=== PATIENT | female | born 1980 | race Caucasian/White ===

== ENCOUNTER 2018-07-29 01:01 | Emergency (ER) | payer MEDICAID, OTHER ==
[~2018-07-29] VITALS: Ht 160 cm; Wt 65.8 kg
[2018-07-29] MEDS ORDERED: HYDROcodone/APAP 5 MG/325 MG (LORTAB) TAB PO ONE (01:45)
[2018-07-29] MEDS ORDERED: CLINDAMYCIN 150 MG (CLEOCIN) CAP PO ONE (01:45)
[2018-07-29] MEDS ORDERED: LIDOCAINE 2% VISCOUS 15 ML UDC PO ONE (01:45)
[2018-07-29] MEDS ORDERED: ONDANSETRON 4 MG (ZOFRAN) ORAL DISSOLVE TAB SL ONE (02:15)
[2018-07-29] MEDS ORDERED: AMOX500C2 PO (02:21)
[2018-07-29] MEDS ORDERED: ACHD5005 PO (02:21)
--- NOTE | 2018-07-29 02:22 | ED EENT ---
History of Present Illness General Chief Complaint: Dental Problems/Pain Stated Complaint: DENTAL PAIN Nursing Triage Note: AMBULATORY TO ED STATING SHE HAS DENTAL PAIN FROM BROKEN TOOTH ON BOTTOM LEFT SIDE. STATES SHE IS DRIVING FROM [place], [place] TO [place], [place] AND PAIN IS TOO GREAT AND HAD TO STOP. 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 Source: patient Exam Limitations: no limitations History of Present Illness Date Seen by Provider: Jul 29, 2018 Time Seen by Provider: 01:27 Initial Comments This 37-year-old woman presents to the emergency room with complaints of dental pain along the left jaw. She has a fractured and decayed tooth that has become abscessed. She does have a bulging abscess on the gums near the broken tooth. She has been taking ibuprofen without significant benefit. She plans to have the tooth extracted at a clinic in [place]. She is afebrile. Allergies and Home Medications Allergies Coded Allergies: No Known Drug Allergies (Unverified , 07/29/18) Home Medications Amoxicillin 500 Mg Capsule, 1,000 MG PO BID Prescribed by: SHARIF MALIK on 07/29/18220 Hydrocodone Bit/Acetaminophen 1 Tab Tab, 1 TAB PO Q4-6HR PRN for PAIN-MODERATE Prescribed by: SHARIF MALIK on 07/29/18220 Patient Home Medication List Home Medication List Reviewed: Yes Review of Systems Review of Systems Constitutional: no symptoms reported Eyes: No Symptoms Reported Ears: No Symptoms Reported Nose: no symptoms reported Mouth: see HPI Throat: no symptoms reported Respiratory: no symptoms reported Cardiovascular: no symptoms reported Gastrointestinal: no symptoms reported : No Musculoskeletal: no symptoms reported Skin: no symptoms reported Neurological: No Symptoms Reported Past Udsyfuv-Gsdhrx-Auvfcl Hx Patient Social History Alcohol Use: Occasionally Uses Recreational Drug Use: Yes Drug of Choice: MARIJUANA Smoking Status: Current Everyday Smoker Type Used: Cigarettes Recent Foreign Travel: No Contact w/Someone Who Travel: No Recent Infectious Disease Expo: No Recent Hopitalizations: No Seasonal Allergies Seasonal Allergies: No Past Medical History Surgeries: Yes Gallbladder Respiratory: No Cardiac: No Neurological: No Genitourinary: No Gastrointestinal: No Musculoskeletal: No Endocrine: Yes Hypothyroidsim HEENT: No Cancer: No Psychosocial: No Integumentary: No Blood Disorders: No Physical Exam Vital Signs Vital Signs - First Documented 07/29/18 07/29/18 01:22 02:27 Temp 98.7 Pulse 106 Resp 20 B/P (MAP) 135/98 (110) Pulse Ox 98 Height, Weight, BMI Height: 5'3.00" Weight: 145lbs. oz. 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 A scalpel was then used to incise the abscess. Purulent material was expressed and debris did with a Richards suction catheter. Patient tolerated the procedure well. Progress/Results/Core Measures Results/Orders My Orders Orders - SHARIF ZAMORA MD Hydrocodone/Apap 5/325 Tablet (Lortab 5 (07/29/18 01:45) Clindamycin Capsule (Cleocin Capsule) (07/29/18 01:45) Lidocaine 2% Viscous 15 Ml (Xylocaine Vi (07/29/18 01:45) Ondansetron Oral Dissolve Tab (Zofran (07/29/18 02:15) Medications Given in ED Current Medications Medications Dose Ordered Sig/Rocio Route Start Time Stop Time Status Last Admin Dose Admin Acetaminophen/ Hydrocodone Bitart 1 tab ONCE ONCE PO 07/29/18 01:45 07/29/18 01:46 DC 07/29/18 01:40 1 TAB Clindamycin HCl 450 mg ONCE ONCE PO 07/29/18 01:45 07/29/18 01:46 DC 07/29/18 01:40 450 MG Lidocaine HCl 15 ml ONCE ONCE PO 07/29/18 01:45 07/29/18 01:46 DC 07/29/18 01:40 15 ML Ondansetron HCl 8 mg ONCE ONCE SL 07/29/18 02:15 07/29/18 02:16 DC 07/29/18 02:11 8 MG Vital Signs/I&O 07/29/18 07/29/18 01:22 02:27 Temp 98.7 98.7 Pulse 106 105 Resp 20 B/P (MAP) 135/98 (110) 130/97 (108) Pulse Ox 98 Blood Pressure Mean: 110 Progress Progress Note : Progress Note Patient was treated with clindamycin and hydrocodone. Anesthetic gauze pads were used to provide topical anesthesia before incision and drainage. Patient developed nausea from her oral medications. Sublingual Zofran was administered. Abscess was then incised and drained. Departure Impression Primary Impression: Dental abscess Additional Impressions: Dental decay Encounter for incision and drainage procedure Disposition: HOME, SELF-CARE Condition: Improved Departure-Patient Inst. Decision time for Depature: 02:18 Referrals: NO,LOCAL PHYSICIAN (PCP/Family) Primary Care Physician Patient Instructions: Tooth Abscess (DC) Add. Discharge Instructions: Use ibuprofen up to 600 mg every 6 hours as needed for primary pain control. Add hydrocodone as prescribed for pain not controlled by ibuprofen. See a dentist as soon as possible to extract the problem tooth. Piercy your teeth gently twice daily. Rinse with antiseptic mouth wash after brushing as tolerated. You may use the anesthetic gauze pads provided in the emergency room as needed. Use with caution as they will numb the mouth, tongue, and throat. Eat and drink very carefully after use. Do NOT fall sleep with gauze pads in your mouth. Complete your antibiotics as prescribed. Return to care if not improving or if symptoms worsen. All discharge instructions reviewed with patient and/or family. Voiced understanding. Scripts Hydrocodone Bit/Acetaminophen (Hydrocodone/Acetaminophen 5/325mg Tablet) 1 Tab Tab 1 TAB PO Q4-6HR PRN for PAIN-MODERATE MDD 10, #10 TAB Prov: SHARIF ZAMORA MD 07/29/18 Amoxicillin (Amoxicillin) 500 Mg Capsule 1000 MG PO BID, #40 CAP Prov: SHARIF ZAMORA MD 07/29/18 SHARIF ZAMORA MD Jul 29, 2018 02:22
[2018-07-29 02:27] VITALS: BP 130/97
== END 2018-07-29 02:28 | disposition home or self-care (01) ==
LOC: ER 01:04
DX: K04.7 Periapical abscess without sinus (principal); K02.9 Dental caries, unspecified; E03.9 Hypothyroidism, unspecified; F12.10 Cannabis abuse, uncomplicated; F17.210 Nicotine dependence, cigarettes, uncomplicated; Z98.890 Other specified postprocedural states
CPT/HCPCS: 99283

== ENCOUNTER 2018-07-29 06:04 | Emergency (ER) | payer MEDICAID, OTHER ==
[~2018-07-29] VITALS: Ht 160 cm; Wt 65.8 kg
[~2018-07-29 06:04] MED LIST: ACHD5005 PO; AMOX500C2 PO
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
--- NOTE | 2018-07-29 07:04 | ED Psychosocial ---
General Chief Complaint: Psych/Social Disorder Stated Complaint: SUICIDAL Source: patient Exam Limitations: no limitations History of Present Illness Date Seen by Provider: Jul 29, 2018 Time Seen by Provider: 06:25 Initial Comments Here with reports of feeling like she wants to end it all. Denies specific suicidal plan but states that things in life got to the point that she doesn't feel like she can cope anymore. She is from the [place] area and drove down here to go stay with her aunt. She has not let her know that she was coming at. She did stop at our emergency department due to tooth pain and was found to have an abscess at the left lower molar which was I&D'd and was given prescription for antibiotics and pain medicine. After that procedure, she waited in the waiting room for approximately 3 hours and then checked back in with the significant depression and thoughts of that she would be better off . Denies HI. Has had 2 previous admissions at [address] [place] [address] for similar issues which she states this is worse than its ever been. Does report that she has lack of family support overall. Reports that she thinks somebody may be trying to harm her although she doesn't know who and does admit that she has paranoid ideas. She did drive here. She does have family in [facility]. She reports that she would voluntarily accepted admission to an inpatient facility for help. Has history of bipolar disorder and is currently being treated for hypothyroidism as well. 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 Timing/Duration: week, getting worse Severity: moderate Associated Symptoms: anxiety, ingestion, injury, suicidal ideation Allergies and Home Medications Allergies Coded Allergies: No Known Drug Allergies (Unverified , 07/29/18) Home Medications Amoxicillin 500 Mg Capsule, 1,000 MG PO BID Prescribed by: SHARIF MALIK on 07/29/18220 Hydrocodone Bit/Acetaminophen 1 Tab Tab, 1 TAB PO Q4-6HR PRN for PAIN-MODERATE Prescribed by: SHARIF MALIK on 07/29/18220 Patient Home Medication List Home Medication List Reviewed: Yes Review of Systems Constitutional: see HPI; No chills, No fever EENTM: see HPI, mouth pain; No throat pain Respiratory: no symptoms reported Cardiovascular: no symptoms reported Gastrointestinal: No abdominal pain, No nausea, No vomiting Genitourinary: no symptoms reported Musculoskeletal: no symptoms reported Skin: no symptoms reported Psychiatric/Neurological: Anxiety, Depressed, Emotional Problems All Other Systems Reviewed Negative Unless Noted: Yes Past Hhrdrjj-Lplxtb-Uxqacz Hx Past Med/Social Hx: Reviewed Nursing Past Med/Soc Hx Patient Social History Alcohol Use: Regular Use Recreational Drug Use: Yes Drug of Choice: MARIJUANA Type Used: Cigarettes Recent Foreign Travel: No Contact w/Someone Who Travel: No Recent Hopitalizations: No Physical Abuse: No Sexual Abuse: No Mistreated: No Fear: No Seasonal Allergies Seasonal Allergies: No Past Medical History Surgeries: Yes Gallbladder Respiratory: No Cardiac: No Neurological: No Genitourinary: No Gastrointestinal: No Musculoskeletal: No Endocrine: Yes Hypothyroidsim HEENT: No Cancer: No Psychosocial: No Integumentary: No Blood Disorders: No Family Medical History Reviewed Nursing Family Hx No Pertinent Family Hx Physical Exam Vital Signs - First Documented 07/29/18 06:15 Temp 96.0 Pulse 88 Resp 17 B/P (MAP) 117/85 (96) Capillary Refill : Height, Weight, BMI Height: 5'3.00" Weight: 145lbs. oz. 65.855881ky; BMI Method:Stated General Appearance: WD/WN, no apparent distress HEENT: PERRL/EOMI, TMs normal, other (fractured tooth left lower molar with surrounding erythema) Neck: full range of motion, supple Respiratory: lungs clear, normal breath sounds Cardiovascular: regular rate, rhythm, no murmur Gastrointestinal: non tender, soft Extremities: non-tender, normal inspection Neurologic/Psychiatric: alert, oriented x 3 Appearance/Memory: appropriate insight, neat Behavior/Eye Contact: cooperative, good eye contact, normal speech Thoughts/Hallucinations: no apparent hallucination, paranoid Skin: normal color, warm/dry Progress/Results/Core Measures Results/Orders Lab Results Laboratory Tests Test 07/29/18 06:41 07/29/18 08:09 Range/Units Urine Color YELLOW Urine Clarity SLIGHTLY CLOUDY Urine pH 5 5-9 Urine Specific [place] 1.030 H 1.016-1.022 Urine Protein 1+ H NEGATIVE Urine Glucose (UA) NEGATIVE NEGATIVE Urine Ketones NEGATIVE NEGATIVE Urine Nitrite NEGATIVE NEGATIVE Urine Bilirubin NEGATIVE NEGATIVE Urine Urobilinogen NORMAL NORMAL MG/DL Urine Leukocyte Esterase 1+ H NEGATIVE Urine RBC (Auto) NEGATIVE NEGATIVE Urine RBC NONE /HPF Urine WBC 5-10 H /HPF Urine Squamous Epithelial Cells 10-25 H /HPF Urine Crystals NONE /LPF Urine Bacteria FEW H /HPF Urine Casts NONE /LPF Urine Mucus MODERATE H /LPF Urine Culture Indicated YES Urine Test NEGATIVE NEGATIVE Urine Opiates Screen POSITIVE H NEGATIVE Urine Oxycodone Screen NEGATIVE NEGATIVE Urine Methadone Screen NEGATIVE NEGATIVE Urine Propoxyphene Screen NEGATIVE NEGATIVE Urine Barbiturates Screen NEGATIVE NEGATIVE Ur Tricyclic Antidepressants Screen NEGATIVE NEGATIVE Urine Phencyclidine Screen NEGATIVE NEGATIVE Urine Amphetamines Screen POSITIVE H NEGATIVE Urine Methamphetamines Screen POSITIVE H NEGATIVE Urine Benzodiazepines Screen POSITIVE H NEGATIVE Urine Cocaine Screen NEGATIVE NEGATIVE Urine Cannabinoids Screen POSITIVE H NEGATIVE White Blood Count 8.5 4.3-11.0 10^3/uL Red Blood Count 4.27 L 4.35-5.85 10^6/uL Hemoglobin 14.6 11.5-16.0 G/DL Hematocrit 42 35-52 % Mean Corpuscular Volume 99 80-99 FL Mean Corpuscular Hemoglobin 34 25-34 PG Mean Corpuscular Hemoglobin Concent 35 32-36 G/DL Red Cell Distribution Width 13.5 10.0-14.5 % Platelet Count 371 130-400 10^3/uL Mean Platelet Volume 9.0 7.4-10.4 FL Neutrophils (%) (Auto) 71 42-75 % Lymphocytes (%) (Auto) 21 12-44 % Monocytes (%) (Auto) 6 0-12 % Eosinophils (%) (Auto) 2 0-10 % Basophils (%) (Auto) 0 0-10 % Neutrophils # (Auto) 6.0 1.8-7.8 X 10^3 Lymphocytes # (Auto) 1.8 1.0-4.0 X 10^3 Monocytes # (Auto) 0.6 0.0-1.0 X 10^3 Eosinophils # (Auto) 0.2 0.0-0.3 10^3/uL Basophils # (Auto) 0.0 0.0-0.1 10^3/uL Sodium Level 140 135-145 MMOL/L Potassium Level 3.3 L 3.6-5.0 MMOL/L Chloride Level 104 98-107 MMOL/L Carbon Dioxide Level 23 21-32 MMOL/L Anion Gap 13 5-14 MMOL/L Blood Urea Nitrogen 12 7-18 MG/DL Creatinine 0.81 0.60-1.30 MG/DL Estimat Glomerular Filtration Rate > 60 BUN/Creatinine Ratio 15 Glucose Level 88 70-105 MG/DL Calcium Level 9.7 8.5-10.1 MG/DL Corrected Calcium 8.5-10.1 MG/DL Total Bilirubin 0.4 0.1-1.0 MG/DL Aspartate Amino Transf (AST/SGOT) 53 H 5-34 U/L Alanine Aminotransferase (ALT/SGPT) 79 H 0-55 U/L Alkaline Phosphatase 94 40-136 U/L Total Protein 7.8 6.4-8.2 GM/DL Albumin 4.7 H 3.2-4.5 GM/DL Free Thyroxine 1.05 0.70-1.48 NG/DL TSH M[place]in Testing 14.38 H 0.35-4.94 UIU/ML Salicylates Level < 5.0 L 5.0-20.0 MG/DL Acetaminophen Level < 10 L 10-30 UG/ML Serum Alcohol < 10 <10 MG/DL My Orders Orders - FAY REARDON MD Ua Culture If Indicated (07/29/18 06:47) Cbc With Automated Diff (07/29/18 06:47) Comprehensive Metabolic Panel (07/29/18 06:47) Alcohol (07/29/18 06:47) Drug Screen Stat (Urine) (07/29/18 06:47) Acetaminophen (07/29/18 06:47) Salicylate (07/29/18 06:47) Ekg Tracing (07/29/18 06:47) Hcg,Qualitative Urine (07/29/18 06:47) Thyroid Analyzer (07/29/18 06:47) Monitor-Rhythm Ecg Trace Only (07/29/18 06:47) Bh Status Checks/Observation Q15M (07/29/18 06:47) General/Regular (07/29/18 Breakfast) Urine Culture (07/29/18 06:41) Free T4 (Free Thyroxine) (07/29/18 08:09) Potassium Chloride (Tablet) (K Dur Table (07/29/18 16:05) Vital Signs/I&O 07/29/18 06:15 Temp 96.0 Pulse 88 Resp 17 B/P (MAP) 117/85 (96) Progress Progress Note : Progress Note Seen and evaluated. Labs, UA, UCG and EKG ordered. Patient declined a nicotine patch. We will complete medical clearance and then initiate looking for mental health bed. Patient did eat a normal breakfast and tolerated that well. 1005: Screen completely does show methamphetamine. I discussed this with the patient and she admits that she does intermittently use methamphetamine over the last year. Patient's thyroid studies elevated for TSH but free T4 is normal. 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 Patient would still like to pursue inpatient admission for her depression concerns and uncontrolled bipolar disorder. We will see if there are beds available and the surrounding communities. Patient is resting comfortably and otherwise no complaints currently. 1345: Patient continues to rest comfortably and reports that she still is seeking inpatient admission. I did discuss the case with the collections technician at [facility] in [facility]. We will fax over documentation to them for evaluation. 1630: I did discuss the case with Dr. Murray and he accepts patient for admission to their hospital. We will arrange for secure transport. Patient agrees to transfer. Initial ECG Impression Date: Jul 29, 2018 Initial ECG Impression Time: 07:03 Initial ECG Rate: 87 Initial ECG Rhythm: Normal Sinus Initial ECG Intervals: Normal Comment Sinus rhythm with normal axis. No evidence of ST elevation [place]. No previous available for comparison. Interpreted by me. Departure Impression Primary Impression: Suicidal ideation Additional Impression: Depression Qualified Codes: F32.2 - Major depressive disorder, single episode, severe without psychotic features Disposition: 02 XFER SHT-TRM HOSP Condition: Stable Transfer Time Spoke to Accepting Phy: 16:30 Transfer Facility: [place], [place], Dr. Murray accepting Method of Transfer: HTS Departure-Patient Inst. Referrals: NO,LOCAL PHYSICIAN (PCP/Family) Primary Care Physician FAY REARDON MD Jul 29, 2018 07:04
--- NOTE | 2018-07-29 07:23 | NUR ---
FOOD TRAY ORDERED
--- NOTE | 2018-07-29 07:33 | NUR ---
FOOD TRAY GIVEN
--- NOTE | 2018-07-29 07:42 | NUR ---
Mindy irizarry in [facility] - 07/29/18 at 0850 by PMCCLURE TOLERATED FLUIDS WELL
--- NOTE | 2018-07-29 08:04 | NUR ---
LAB HERE TO DRAW BLOOD
--- NOTE | 2018-07-29 08:09 | NUR ---
ATE 100% OF BREAKFAST
[2018-07-29 08:13] LABS: BILIRUBIN,URINE NEGATIVE (NEGATIVE); CLARITY,URINE SLIGHTLY CLOUDY; COLOR,URINE YELLOW; GLUCOSE, URINE (UA) NEGATIVE (NEGATIVE); KETONES,URINE NEGATIVE (NEGATIVE); LEUKOCYTE ESTERASE ,URINE 1+ (NEGATIVE); NITRITE,URINE NEGATIVE (NEGATIVE); PH,URINE 5 (5-9); PROTEIN,URINE 1+ (NEGATIVE); UROBILINOGEN,URINE NORMAL (NORMAL)
[2018-07-29 08:22] LABS: BASOPHILS % (AUTO) 0 % (0-10); EOSINOPHILS # (AUTO) 0.2 10^3/uL (0.0-0.3); EOSINOPHILS % (AUTO) 2 % (0-10); HEMATOCRIT 42 % (35-52); HEMOGLOBIN 14.6 G/DL (11.5-16.0); LYMPHOCYTES # (AUTO) 1.8 X 10^3 (1.0-4.0); LYMPHOCYTES % (AUTO) 21 % (12-44); MEAN CORPUSCULAR HEMOGLOBIN 34 PG (25-34); MEAN CORPUSCULAR HGB CONC 35 G/DL (32-36); MEAN CORPUSCULAR VOLUME 99 FL (80-99); MONOCYTES # (AUTO) 0.6 X 10^3 (0.0-1.0); MONOCYTES % (AUTO) 6 % (0-12); NEUTROPHILS % (AUTO) 71 % (42-75); PLATELET COUNT 371 10^3/uL (130-400); RED CELL DISTRIBUTION WIDTH 13.5 % (10.0-14.5); WHITE BLOOD COUNT 8.5 10^3/uL (4.3-11.0)
--- NOTE | 2018-07-29 08:25 | NUR ---
IN ROOM RESTING BELONGING REMAIN LOCKED UP
[2018-07-29 08:29] LABS: BACTERIA,URINE FEW /HPF
[2018-07-29 08:50] LABS: ALANINE AMINOTRANSFERASE 79 U/L (0-55); ALBUMIN 4.7 GM/DL (3.2-4.5); ALKALINE PHOSPHATASE 94 U/L (40-136); BILIRUBIN,TOTAL 0.4 MG/DL (0.1-1.0); BUN/CREATININE RATIO 15; CALCIUM 9.7 MG/DL (8.5-10.1); CARBON DIOXIDE 23 MMOL/L (21-32); CHLORIDE 104 MMOL/L (98-107); CREATININE SERUM 0.81 MG/DL (0.60-1.30); GFR ESTIMATED > 60; GLUCOSE 88 MG/DL (70-105); POTASSIUM 3.3 MMOL/L (3.6-5.0); SALICYLATE < 5.0 MG/DL (5.0-20.0); SODIUM 140 MMOL/L (135-145); TOTAL PROTEIN 7.8 GM/DL (6.4-8.2)
[2018-07-29 08:58] LABS: ACETAMINOPHEN < 10 UG/ML (10-30)
[2018-07-29 09:12] LABS: TSH (THYROID ANALYZER) 14.38 UIU/ML (0.35-4.94)
--- NOTE | 2018-07-29 09:35 | NUR ---
CON'T TO REST IN BED NO NEW C/O
[2018-07-29 09:46] LABS: FREE T4 (FREE THYROXINE) 1.05 NG/DL (0.70-1.48)
[2018-07-29 09:49] LABS: HCG,QUALITATIVE URINE NEGATIVE (NEGATIVE)
[2018-07-29 09:59] LABS: AMPHETAMINE SCREEN, URINE POSITIVE (NEGATIVE); BARBITURATE SCREEN URINE NEGATIVE (NEGATIVE); BENZODIAZEPINES SCREEN URINE POSITIVE (NEGATIVE); CANNABINOID SCREEN, URINE POSITIVE (NEGATIVE); COCAINE SCREEN URINE NEGATIVE (NEGATIVE); METHADONE STAT NEGATIVE (NEGATIVE); METHAMPHETAMINE SCREEN URINE S POSITIVE (NEGATIVE); OPIATE SCREEN URINE POSITIVE (NEGATIVE); OXYCODONE STAT NEGATIVE (NEGATIVE); PROPOXYPHENE STAT NEGATIVE (NEGATIVE); TRICYCLIC ANTIDEPRESSANTS SCRE NEGATIVE (NEGATIVE)
--- NOTE | 2018-07-29 10:19 | NUR ---
CALLED TO CHECK ON BED AVIABLE [address] LEFT MESSAGE [address] NO BEDS [address] LEFT MESSAGE.
--- NOTE | 2018-07-29 11:00 | NUR ---
CON'T TO REST IN BED NO NEW C/O
--- NOTE | 2018-07-29 13:05 | NUR ---
Gave patient lunch tray. Pt ate and was thankful
--- NOTE | 2018-07-29 13:55 | NUR ---
CHART FAXED TO PH[facility]
--- NOTE | 2018-07-29 15:48 | NUR ---
CALLED TO CHECK ON IF THEY ARE READY TO ACCEPT HER . LEFT MESSAGE
[2018-07-29] MEDS ORDERED: KCL 20 MEQ TAB (K-DUR) PO ONE ×2 (16:05→16:34)
--- NOTE | 2018-07-29 16:46 | NUR ---
pt ordered supper tray
[2018-07-29 16:47] VITALS: BP 113/78
--- NOTE | 2018-07-29 17:14 | NUR ---
room number received and trasport (andres brown) called
[2018-07-29 18:04] VITALS: BP 0/0
== END 2018-07-29 17:42 | disposition short-term general hospital (02) ==
LOC: EDUNIT# 06:04 → ER 06:06
DX: R45.851 Suicidal ideations (principal); F32.9 Major depressive disorder, single episode, unspecified; E03.9 Hypothyroidism, unspecified; F12.10 Cannabis abuse, uncomplicated; Z98.890 Other specified postprocedural states
CPT/HCPCS: 36415; 80053; 80306; 80320; 80329; 81000; 84439; 84443; 84703; 85025; 87088; 93005

== ENCOUNTER 2018-08-06 14:38 | Emergency (ER) | payer MEDICAID ==
[~2018-08-06] VITALS: Ht 160 cm; Wt 63.5 kg
[2018-08-06] MEDS ORDERED: VENL75CA (14:53)
[2018-08-06] MEDS ORDERED: HYDR-3781 (14:53)
[2018-08-06] MEDS ORDERED: LEVO25TA5 PO (14:56)
--- NOTE | 2018-08-06 15:18 | NUR ---
BACK IN ROOM TALKING TO THE PT AT THIS TIME.
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
[2018-08-06] MEDS ORDERED: QUEtiapine 25 MG (SEROquel) TAB IMMEDIATE RELEASE PO SCH (16:00)
--- NOTE | 2018-08-06 16:04 | NUR ---
PHARMACY CONTACTED FOR SERAQUIL.
[2018-08-06 16:10] VITALS: BP 145/94
== END 2018-08-06 16:10 | disposition home or self-care (01) ==
LOC: EDUNIT# 14:38 → ER 14:40
DX: F41.9 Anxiety disorder, unspecified (principal); F32.9 Major depressive disorder, single episode, unspecified; E03.9 Hypothyroidism, unspecified; F12.10 Cannabis abuse, uncomplicated; F17.210 Nicotine dependence, cigarettes, uncomplicated; Z98.890 Other specified postprocedural states
CPT/HCPCS: 99283